=== PATIENT | male | born 1960 | race Hispanic/Latino ===

== ENCOUNTER 2021-08-07 11:14 | Outpatient (CLI) | payer OTHER ==
--- NOTE | 2021-08-07 13:50 | XRay Report ---
BILATERAL KNEES 2 VIEWS INDICATION: Bilateral knee pain. COMPARISON: None. IMPRESSION: There is been previous internal fixation of a femoral shaft fracture with medullary stephen and screws which is partially imaged. There are [id number] tricompartmental osteoarthritic leyva ges in the right knee. There are minimal tricompartmental osteoarthritic changes in the left knee. Ca lcifications overlie the course of the proximal MCL in the left knee: Chest 10 previous left MCL inju ry. No acute fracture or bone lesion. Small bilateral knee joint effusions are identified. PELVIS ONE VIEW INDICATION: PELVIC PAIN. COMPARISON: None. IMPRESSION: No evidence for pelvic fracture, bone lesion or diastasis. There are mild degenerative c hanges in the lower lumbar spine, bilateral SI joints and bilateral hip joints. There is been previou s internal fixation of a proximal left femur fracture and a mid right femur fracture which are incomp letely imaged on this exam. LEFT ELBOW 2 VIEWS INDICATION: Left elbow pain. COMPARISON: None. 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 Heterotopic calcifications are identified anterior to the elbow joint consistent with chronic sequela of previous trauma/fractu re. There is no evidence for acute fracture or bone lesion. There appears to be a remodeling fractur e in the proximal ulna shaft which is incompletely imaged. There also appears to be a retained orthop edic screw in the proximal tibial shaft, correlate with history. LEFT SHOULDER 3 VIEWS INDICATION: Left shoulder pain. COMPARISON: None. IMPRESSION: No acute osseous or soft tissue abnormality. Moderate osteoarthritic changes are iden tified at the acromioclavicular joint. Signer Name: Gilberto Wood Jr, MD Signed: 08/07/2021 1:46 PM Workstation Name: [id number]
== END 2021-08-07 11:15 | disposition home or self-care (01) ==
LOC: XRAY 11:14
PROVIDERS: ATTEND Internal Medicine
DX: M25.462 Effusion, left knee (principal); M25.461 Effusion, right knee; I10 Essential (primary) hypertension; M17.0 Bilateral primary osteoarthritis of knee; M47.816 Spondylosis without myelopathy or radiculopathy, lumbar region; M16.0 Bilateral primary osteoarthritis of hip; M47.898 Other spondylosis, sacral and sacrococcygeal region; M19.022 Primary osteoarthritis, left elbow; M19.012 Primary osteoarthritis, left shoulder
CPT/HCPCS: 72170